=== PATIENT | female | born 1995 | race Caucasian/White ===

== ENCOUNTER → 2021-04-09 | Outpatient (CLI) | payer OTHER | END | disposition home or self-care (01) | LOC: LAB SHORT 14:49 | DX: Z34.03 Encounter for supervision of normal first pregnancy, third trimester (principal); Z3A.36 36 weeks gestation of pregnancy | CPT/HCPCS: 87081; 87150 ==

== ENCOUNTER 2024-05-25 12:15 | Inpatient (IN) | payer OTHER ==
[2024-05-25] VITALS (13 sets, daily range): BP systolic 121–139; BP diastolic 58–82
[~2024-05-25] VITALS: Ht 167.6 cm; Wt 75.4 kg
[~2024-05-25 12:15] MED LIST: IBUP800 PO
[2024-05-25] MEDS ORDERED: FentaNYL Citrate 50 MCG/ML 2 ML Injection IV PRN (12:50)
[2024-05-25] MEDS ORDERED: Penicillin G Potassium 5,000,000 UNITS in NS 250 ML IV ONE (13:00)
[2024-05-25] MEDS ORDERED: Oxytocin 10 Unit / ML Vial IM PRN (13:00)
[2024-05-25] MEDS ORDERED: Lactated Ringer's 1,000 ML IV SCH ×3 (13:00→23:55)
[2024-05-25] MEDS ORDERED: Misoprostol 200 MCG Tab PR PRN ×2 (13:00→23:45)
[2024-05-25] MEDS ORDERED: Misoprostol 200 MCG Tab BC PRN (13:00)
[2024-05-25] MEDS ORDERED: OXYTOCIN/RINGER'S LACTATE 500 ML IV PRN (13:00)
[2024-05-25] MEDS ORDERED: Tranexamic Acid 100 ML IV SCH (13:00)
[2024-05-25] MEDS ORDERED: ePHEDrine Sulfate 50 MG/ML 1ML Injection XX PRN (13:00)
[2024-05-25] MEDS ORDERED: Lactated Ringer's 1,000 ML IV PRN (13:00)
[2024-05-25] MEDS ORDERED: Methylergonovine Maleate 0.2MG / ML 1ML Amp IM PRN ×2 (13:00→23:55)
[2024-05-25] MEDS ORDERED: FentaNYL 2mcg/ml-Bup 0.1% Epd 250 ML EPI PRN (13:00)
[2024-05-25] MEDS ORDERED: Carboprost Tromethamine 250 MCG/ML 1ML Amp IM PRN (13:00)
[2024-05-25] MEDS ORDERED: Acetaminophen 500 MG Tab PO PRN (13:05)
[2024-05-25] MEDS ORDERED: Calcium Carbonate 500 MG Tab Chew PO SCH (13:05)
[2024-05-25] MEDS ORDERED: Ondansetron HCl 2 MG / ML 2ML Vial IV PRN (13:05)
[2024-05-25] MEDS ORDERED: Ferrex 150 Plu1 EACH PO (14:09)
[2024-05-25 14:12] LABS: BASOPHILS ABSOLUTE AUTO 0.02 K/mm3 (0.00-0.23); BASOPHILS PERCENT AUTO 0 % (0-2); EOSINOPHILS ABSOLUTE AUTO 0.02 K/mm3 (0.00-0.68); EOSINOPHILS PERCENT AUTO 0 % (0-6); Hematocrit 41.6 % (33.0-51.0); Hemoglobin 13.3 g/dL (11.5-16.0); IMMATURE GRAN ABSOLUTE AUTO 0.05 K/mm3 (0.00-0.10); IMMATURE GRAN PERCENT AUTO 0 % (0-1); LYMPHOCYTES ABSOLUTE AUTO 1.13 K/mm3 (0.84-5.20); LYMPHOCYTES PERCENT AUTO 10 % (21-46); MONOCYTES ABSOLUTE AUTO 0.74 K/mm3 (0.16-1.47); MONOCYTES PERCENT AUTO 6 % (4-13); Mean Corpuscular HGB 26.1 pg (26.0-34.0); Mean Corpuscular Volume 82 fL (80-100); Mean Platelet Volume 11.3 fL (9.1-12.4); NEUTROPHILS ABSOLUTE AUTO 9.79 K/mm3 (1.96-9.15); NEUTROPHILS PERCENT AUTO 83 % (41-73); Platelet Count 169 K/mm3 (150-400); RDW Coefficient Variation 20.9 % (11.7-14.2); RDW Standard Deviation 61.4 fL (35.1-46.3); White Blood Cell Count 11.75 K/mm3 (4.00-11.30)
[2024-05-25] MEDS ORDERED: Penicillin G Potassium 2,500,000 UNITS in Dextrose 5% 100 ML IV SCH (18:00)
[2024-05-25] MEDS ORDERED: NS 0 ML IV ONE (23:06)
[2024-05-25] MEDS ORDERED: OXYTOCIN/RINGER'S LACTATE 500 ML IV SCH (23:45)
[2024-05-25] MEDS ORDERED: Ibuprofen 400 MG Tab PO PRN (23:45)
[2024-05-25] MEDS ORDERED: Acetaminophen 325 MG TABLET PO PRN (23:55)
[2024-05-25] MEDS ORDERED: FLU VACC TS2024-25(6MOS UP)/PF 45 MCG/0.5 ML SYRINGE IM ONE (23:55)
[2024-05-25] MEDS ORDERED: Benzocaine Topical Anesthetic Spray 60GM TOP PRN (23:55)
[2024-05-25] MEDS ORDERED: Witch Hazel/Glycerin PADS TOP PRN (23:55)
[2024-05-26] VITALS (13 sets, daily range): BP systolic 114–133; BP diastolic 62–77
[2024-05-26] MEDS ORDERED: Ketorolac Tromethamine 30mg Vial IV SCH
[2024-05-26 06:06] LABS: BASOPHILS ABSOLUTE AUTO 0.04 K/mm3 (0.00-0.23); BASOPHILS PERCENT AUTO 0 % (0-2); EOSINOPHILS ABSOLUTE AUTO 0.01 K/mm3 (0.00-0.68); EOSINOPHILS PERCENT AUTO 0 % (0-6); Hematocrit 42.2 % (33.0-51.0); Hemoglobin 13.9 g/dL (11.5-16.0); IMMATURE GRAN ABSOLUTE AUTO 0.14 K/mm3 (0.00-0.10); IMMATURE GRAN PERCENT AUTO 1 % (0-1); LYMPHOCYTES ABSOLUTE AUTO 1.53 K/mm3 (0.84-5.20); LYMPHOCYTES PERCENT AUTO 8 % (21-46); MONOCYTES ABSOLUTE AUTO 1.14 K/mm3 (0.16-1.47); MONOCYTES PERCENT AUTO 6 % (4-13); Mean Corpuscular HGB 26.1 pg (26.0-34.0); Mean Corpuscular HGB Conc 32.9 g/dL (31.5-36.5); Mean Corpuscular Volume 79 fL (80-100); Mean Platelet Volume 10.9 fL (9.1-12.4); NEUTROPHILS ABSOLUTE AUTO 17.25 K/mm3 (1.96-9.15); NEUTROPHILS PERCENT AUTO 86 % (41-73); Platelet Count 156 K/mm3 (150-400); RDW Coefficient Variation 21.2 % (11.7-14.2); RDW Standard Deviation 59.7 fL (35.1-46.3); Red Blood Cell Count 5.33 M/mm3 (3.80-5.20); White Blood Cell Count 20.11 K/mm3 (4.00-11.30)
[2024-05-26] MEDS ORDERED: Prenatal Vit/FE Fumarate/FA 1 Tab PO SCH (09:00)
[2024-05-26] MEDS ORDERED: Ketorolac Tromethamine 30mg Vial IV ONE (19:55)
--- NOTE | 2024-05-26 23:47 | NUR ---
RN VERIFIED BANDS WITH MOB AND GAVE ALL DISCHARGE PAPERWORK. RN WATCHED MOB PLACED IN CARSEAT AND WALKED MOB, FOB AND BABY IN CARSEAT OUT TO CAR.
== END 2024-05-26 23:52 | disposition home or self-care (01) | DRG 807 ==
LOC: OBS 12:15 → BC 12:15 → OBS 12:38 → BC 12:39
PROVIDERS: ADMIT Obstetrics & Gynecology
PROC: 10E0XZZ Delivery of Products of Conception, External Approach (ICD-10-PCS; principal; 2024-05-25)
PROC: 0KQM0ZZ Repair Perineum Muscle, Open Approach (ICD-10-PCS; 2024-05-25)
DX: O42.02 Full-term premature rupture of membranes, onset of labor within 24 hours of rupture (principal); Z37.0 Single live birth; Z3A.39 39 weeks gestation of pregnancy; O69.81X0 Labor and delivery complicated by cord around neck, without compression, not applicable or unspecified; O70.1 Second degree perineal laceration during delivery; Z79.899 Other long term (current) drug therapy
CPT/HCPCS: 36415; 85025; 86850; 86900; 86901; 99214; A9270; J1885; J2540; J2590; J3010; J7050; J7120